=== PATIENT | male | born 1980 | race Caucasian/White ===

== ENCOUNTER 2017-01-02 18:50 | Emergency (ER) | payer SELFPAY ==
[~2017-01-02] VITALS: Ht 175.3 cm; Wt 85.0 kg
[~2017-01-02 18:50] MED LIST: DILANTIN 100MG100 MG PO; NO HOME MEDICATIONS
[2017-01-02 19:01] VITALS: TEMP 99.9
[2017-01-02 19:50] VITALS: BP 121/77; PULSE 95
== END 2017-01-02 19:50 | disposition home or self-care (01) ==
LOC: COL.ER 18:50
DX: J10.1 Influenza due to other identified influenza virus with other respiratory manifestations (principal)